=== PATIENT | female | born 1950 | race Caucasian/White ===

== ENCOUNTER 2016-12-08 16:33 | Emergency (ER) | payer OTHER | END 2016-12-08 17:50 | disposition home or self-care (01) | LOC: ER1 16:33 | DX: L02.411 Cutaneous abscess of right axilla (principal); E78.5 Hyperlipidemia, unspecified; F32.9 Major depressive disorder, single episode, unspecified; N18.9 Chronic kidney disease, unspecified; I12.9 Hypertensive chronic kidney disease with stage 1 through stage 4 chronic kidney disease, or unspecified chronic kidney disease; Z90.710 Acquired absence of both cervix and uterus | CPT/HCPCS: 10061; 87070; 87077; 87186; 87205; 96372; 99283 ==

== ENCOUNTER 2016-12-10 10:39 | Emergency (ER) | payer OTHER | END 2016-12-10 13:00 | disposition home or self-care (01) | LOC: ER1 10:39 | DX: L02.411 Cutaneous abscess of right axilla (principal); I12.9 Hypertensive chronic kidney disease with stage 1 through stage 4 chronic kidney disease, or unspecified chronic kidney disease; N18.9 Chronic kidney disease, unspecified | CPT/HCPCS: 99282 ==

== ENCOUNTER 2020-10-23 17:11 | Emergency (ER) | payer MEDICARE, OTHER ==
[~2020-10-23 17:11] MED LIST: ASPIR 8181 MG PO; B12 PO; CRESTOR10 MG PO; ELLIPTA; MACROBID 100 M100 MG PO; NORVASC 5 MG TAB5 MG PO; TRADJENTA5 MG PO; VENTOLIN HFA 66.7 GM INH; VICTOZA 1818 MG/3 ML SQ; VIT D PO; ZOFRAN ODT 4 MG4 MG PO; [UNRECOGNIZED DRUG - OTHER] PO
[2020-10-23 19:58] LABS: HEMOGLOBIN 13.9 gm/dl (12.3-15.3); RED BLOOD COUNT 4.86 M/UL (4.00-5.10); WHITE BLOOD COUNT 9.4 K/UL (4.5-11.0)
[2020-10-23 20:19] LABS: BUN/CREATININE RATIO 15 (0-10)
[2020-10-23] MEDS ORDERED: NEURONTIN100 MG PO (22:26)
[2020-10-23] MEDS ORDERED: [UNRECOGNIZED DRUG - OTHER] (22:31)
[2020-10-23] MEDS ORDERED: [UNRECOGNIZED DRUG - REMARK] (22:31)
== END 2020-10-23 22:57 | disposition home or self-care (01) ==
LOC: ER1 17:11
PROVIDERS: Family Medicine
DX: M79.605 Pain in left leg (principal); E11.9 Type 2 diabetes mellitus without complications; F17.200 Nicotine dependence, unspecified, uncomplicated; R79.1 Abnormal coagulation profile
CPT/HCPCS: 36415; 72131; 80053; 82550; 82553; 83036; 83874; 83880; 84484; 85025; 85379; 93005; 99284

== ENCOUNTER → 2020-10-24 | Outpatient (CLI) | payer MEDICARE, OTHER ==
[~2020-10-24] MED LIST changes: +NEURONTIN100 MG PO; +[UNRECOGNIZED DRUG - OTHER]; +[UNRECOGNIZED DRUG - REMARK]
== END ==
LOC: US 09:55
DX: M79.605 Pain in left leg (principal); R79.1 Abnormal coagulation profile
CPT/HCPCS: 93970

== ENCOUNTER 2020-12-19 00:15 | Emergency (ER) | payer MEDICARE, OTHER | END 2020-12-19 01:50 | disposition home or self-care (01) | LOC: ER1 00:15 | DX: Z53.21 Procedure and treatment not carried out due to patient leaving prior to being seen by health care provider (principal) ==

== ENCOUNTER → 2020-12-27 | Outpatient (CLI) | payer MEDICARE, OTHER | LOC: LAB 12:04 | PROVIDERS: Internal Medicine Nephrology | DX: N17.9 Acute kidney failure, unspecified (principal) | CPT/HCPCS: 36415; 80053; 82570; 84156 ==

== ENCOUNTER → 2021-01-23 | Outpatient (CLI) | payer MEDICARE, OTHER | LOC: KOH-I 10:42 | DX: M16.11 Unilateral primary osteoarthritis, right hip (principal); M17.0 Bilateral primary osteoarthritis of knee; M25.561 Pain in right knee; G89.29 Other chronic pain; M25.562 Pain in left knee | CPT/HCPCS: 73522; 73562 ==

== ENCOUNTER → 2021-02-15 | Outpatient (CLI) | payer MEDICARE, OTHER | LOC: LAB 07:27 | PROVIDERS: Internal Medicine Nephrology | DX: N17.9 Acute kidney failure, unspecified (principal) | CPT/HCPCS: 36415; 80048 ==

== ENCOUNTER → 2021-09-11 | Outpatient (CLI) | payer MEDICARE, OTHER | LOC: MAMO 09:39 | DX: Z12.31 Encounter for screening mammogram for malignant neoplasm of breast (principal) | CPT/HCPCS: 77063; 77067 ==